=== PATIENT | female | born 1990 | race Caucasian/White ===

== ENCOUNTER 2019-08-08 04:06 | Emergency (ER) | payer BC ==
[~2019-08-08] VITALS: Ht 160 cm; Wt 72.6 kg
[2019-08-08] MEDS ORDERED: VYVANCE PO (04:25)
--- NOTE | 2019-08-08 04:29 | NUR ---
Dr. Ramesh in patient's room at bedside.
[2019-08-08] MEDS ORDERED: HYDROCODONE/APAP 5-325MG TABLET PO ONE (04:30)
[2019-08-08] MEDS ORDERED: HYDROCODONE/APAP 5-325MG TABLET ONE (04:40)
[2019-08-08] MEDS ORDERED: MORPHINE SULFATE 4 MG/1 ML DISP.SYRIN IV ONE ×2 (04:45→06:00)
[2019-08-08] MEDS ORDERED: IV NORMAL SALINE 1000 ML BAG IV ONE (04:45)
[2019-08-08] MEDS ORDERED: ONDANSETRON 4 MG/2 ML VIAL IV ONE (04:45)
[2019-08-08] MEDS ORDERED: ONDANSETRON 4 MG/2 ML VIAL ONE (05:11)
[2019-08-08] MEDS ORDERED: MORPHINE SULFATE 4 MG/1 ML DISP.SYRIN ONE ×2 (05:12→05:56)
--- NOTE | 2019-08-08 05:20 | NUR ---
production assistant civil drafting technician at bedside.
[2019-08-08 05:33] LABS: *CLARITY,URINE CLOUDY (CLEAR)
[2019-08-08 05:34] LABS: *COLOR,URINE AMBER (YELLOW); UGLUCOSE NEGATIVE (NEGATIVE)
[2019-08-08 05:35] LABS: *BILIRUBIN,URIN NEGATIVE (NEGATIVE); *BLOOD, URINE 3+ (NEGATIVE); *KETONES,URINE NEGATIVE (NEGATIVE); *UROBILINOGEN,URINE 0.2 E.U./dl (NORMAL); LEUKOCYTE ESTERASE ,URINE NEGATIVE (NEGATIVE); NITRITE, URINE NEGATIVE (NEGATIVE)
[2019-08-08 05:40] LABS: RBC,URINE TNTC /HPF (0-3)
[2019-08-08 05:41] LABS: BACTERIA,URINE MANY /HPF (NONE SEEN); SQUAMOUS EPITHELIAL CELL,UR MODERATE /HPF (NONE SEEN)
[2019-08-08 06:30] VITALS: BP 131/82
--- NOTE | 2019-08-08 06:30 | NUR ---
Patient discharged to home in stable conditon. Written and verbal after care instructions given. Patient verbalizes understanding of instructions. patient ambulatory with steady gait. patient at bedside and assist patient. consent to driving patient home. Exit care package and personal belongings taken with the patient. Patient denied any pain/discomfort prior to discharge.
== END 2019-08-08 06:28 | disposition home or self-care (01) ==
LOC: ER 04:15
DX: O03.9 Complete or unspecified spontaneous abortion without complication (principal); O99.331 Smoking (tobacco) complicating pregnancy, first trimester; Z79.899 Other long term (current) drug therapy; Z3A.01 Less than 8 weeks gestation of pregnancy
CPT/HCPCS: 36415; 76856; 81000; 81001; 84702; 86850; 86900; 86901; 87086; 96374; 96375; 96376; 99284; J2270 ×2; J2405; A4663; J7030

== ENCOUNTER 2021-03-02 01:13 | Emergency (ER) | payer BC, OTHER ==
[~2021-03-02] VITALS: Ht 160 cm; Wt 74.8 kg
[~2021-03-02 01:13] MED LIST: VYVANCE PO
--- NOTE | 2021-03-02 01:46 | NUR ---
PATIENT WALKS INTO ER FOR POSSIBLE ALLERGIC REATION, NOTICED 2 DAYS AGO, SWELIING AND REDNESS IN THE FACE, DENIES SHORTNESS OF BREATH. STATES TOOK BENADRYL MONDAY NIGHT, SHE WAS NT GETTING BETTER TODAY SO SHE DECIDED TO COME IN TONIGHT.
--- NOTE | 2021-03-02 02:29 | NUR ---
DR. ADDISON AT BEDSIDE FOR MSE.
[2021-03-02] MEDS ORDERED: KETOROLAC TROMETHAMINE 60 MG INJ IM ONE ×2 (02:45→02:48)
[2021-03-02] MEDS ORDERED: LORATADINE 10 MG TABLET PO ONE (03:15)
[2021-03-02 03:18] LABS: *URINE HCG, QUAL NEGATIVE (NEGATIVE)
[2021-03-02] MEDS ORDERED: P-EP-92 PO (03:19)
--- NOTE | 2021-03-02 03:20 | NUR ---
NEGATIVE HCG, TORADOL IM GIVEN.
[2021-03-02 03:33] VITALS: BP 149/87
--- NOTE | 2021-03-02 03:33 | NUR ---
Patient discharged to home in stable condition. Written and verbal after care instructions given. Patient verbalizes understanding of instructions. Stressed follow up or return to ER for worsening s/s.
== END 2021-03-02 04:00 | disposition home or self-care (01) ==
LOC: ER 01:18
DX: J30.2 Other seasonal allergic rhinitis (principal); H92.01 Otalgia, right ear
CPT/HCPCS: 84703; 96372; 99283; J1885; A4663